=== PATIENT | female | born 1970 | race Caucasian/White ===

== ENCOUNTER 2020-12-31 10:11 | Inpatient (IN) | payer BC ==
[~2020-12-31] VITALS: Ht 160 cm; Wt 89.8 kg
[~2020-12-31 10:11] MED LIST: HYDROCHLOROTHIA25 MG PO; LISINOPRIL10 MG PO
[2020-12-31] MEDS ORDERED: SODIUM CHLORIDE 0.9% 1000ML 1,000 ML IV STA (10:33)
[2020-12-31 10:58] LABS: BASOPHILS % 0.3 % (0.0-1.0); EOSINOPHILS # (AUTO) 0.2 (0.0-0.4); EOSINOPHILS % 2.2 % (0.0-6.0); LYMPHOCYTES # (AUTO) 3.3 (1.0-3.2); LYMPHOCYTES % 43.6 % (18.0-39.1); MEAN CORPUSCULAR HEMOGLOBIN 22.2 pg (28-32); MONOCYTES # (AUTO) 0.5 (0.2-0.8); NEUTROPHILS # (AUTO) 3.5 (2.1-6.9); NEUTROPHILS % 46.1 % (38.7-80.0); PLATELET COUNT 546 x10e3/uL (140-360); RED BLOOD COUNT 3.11 x10e6/uL (3.6-5.1); RED CELL DISTRIBUTION WIDTH 15.4 % (11.7-14.4)
[2020-12-31 11:04] LABS: INR 0.91; PROTHROMBIN TIME 12.8 seconds (11.9-14.5)
[2020-12-31 11:05] LABS: PARTIAL THROMBOPLASTIN TIME 19.3 seconds (23.8-35.5)
[2020-12-31 11:06] LABS: HEMOGLOBIN 6.9 g/dL (12.0-16.0)
[2020-12-31 11:12] LABS: ALBUMIN 3.4 g/dL (3.5-5.0); ALBUMIN/GLOBULIN RATIO 0.9 (0.8-2.0); ANION GAP 14.3 mmol/L (8-16); CALCIUM 8.9 mg/dL (8.4-10.2); CREATININE, SERUM 0.7 mg/dL (0.57-1.11); POTASSIUM 3.3 mmol/L (3.5-5.1)
[2020-12-31 11:21] LABS: CREATINE KINASE MB 0.5 ng/mL (0-5.0)
[2020-12-31] MEDS ORDERED: SODIUM CHLORIDE 0.9% 1000ML 1,000 ML IV SCH (13:30)
[2020-12-31] MEDS ORDERED: ONDANSETRON HCL INJ 2MG/ML 2ML 2 MG/ML VIAL IV PRN (13:30)
[2020-12-31] MEDS ORDERED: BUSPIRONE HCL30 MG (16:58)
[2020-12-31] MEDS ORDERED: FERROUS SULFATE 325 MG TAB PO SCH (17:00)
[2020-12-31] MEDS ORDERED: DOCUSATE SODIUM 100 MG CAP PO PRN (17:00)
[2020-12-31] MEDS ORDERED: IBUPROFEN200 MG PO (17:02)
[2020-12-31] MEDS ORDERED: FLUOXETINE HCL20 MG PO (17:02)
[2020-12-31] MEDS ORDERED: CETIRIZINE HCL10 MG (17:02)
[2020-12-31] MEDS ORDERED: HYDROXYZIN10 MG/5 ML PO (17:02)
[2020-12-31] MEDS ORDERED: CYCLOBENZAPRINE10 MG PO (17:02)
[2020-12-31 17:19] VITALS: BP 130/78
[2020-12-31 17:24] VITALS: BP 130/78
[2020-12-31 17:25] VITALS: BP 130/78
[2020-12-31] MEDS: ACETAMINOPHEN 325 MG TAB PO PRN (17:36)
[2020-12-31] MEDS ORDERED: SODIUM CHLORIDE 0.9% 1000ML 1,000 ML ONE (17:38)
[2020-12-31 17:39] LABS: CHOL/HDL RATIO 4.3 (3.0-3.6)
[2020-12-31 18:00] LABS: FERRITIN 7.46 ng/mL (4.63-204.00)
[2020-12-31] MEDS ORDERED: SODIUM CHLORIDE 0.9% 250ML 250 ML IV ONE (18:00)
[2020-12-31 20:00] VITALS: BP 128/72
[2020-12-31] MEDS ORDERED: ZOLPIDEM TARTRATE 5 MG TAB PO PRN (21:00)
[2020-12-31] MEDS ORDERED: SODIUM CHLORIDE 0.9% 250ML 250 ML ONE (21:48)
[2021-01-01] VITALS (9 sets, daily range): BP systolic 123–136; BP diastolic 51–74
[2021-01-01] MEDS ORDERED: DIPHENHYDRAMINE HCL 25 MG CAP PO ONE (00:45)
[2021-01-01] MEDS ORDERED: LORAZEPAM INJ 2 MG/ML VIAL IV PRN (00:45)
[2021-01-01] MEDS ORDERED: CYCLOBENZAPRINE HCL 10 MG TAB PO PRN (07:00)
[2021-01-01 08:12] LABS: BASOPHILS % 0.3 % (0.0-1.0); EOSINOPHILS # (AUTO) 0.2 (0.0-0.4); EOSINOPHILS % 2.5 % (0.0-6.0); LYMPHOCYTES # (AUTO) 2.7 (1.0-3.2); LYMPHOCYTES % 40.4 % (18.0-39.1); MEAN CORPUSCULAR HEMOGLOBIN 23.3 pg (28-32); MEAN CORPUSCULAR HGB CONC 30.8 g/dL (31-35); MEAN CORPUSCULAR VOLUME 75.4 fL (81-99); MONOCYTES # (AUTO) 0.4 (0.2-0.8); MONOCYTES % 6.3 % (4.4-11.3); NEUTROPHILS # (AUTO) 3.3 (2.1-6.9); NEUTROPHILS % 49.8 % (38.7-80.0); PLATELET COUNT 474 x10e3/uL (140-360); RED BLOOD COUNT 3.01 x10e6/uL (3.6-5.1); RED CELL DISTRIBUTION WIDTH 15.3 % (11.7-14.4)
[2021-01-01 08:25] LABS: HEMATOCRIT 22.7 % (34.2-44.1)
[2021-01-01 08:37] LABS: ANION GAP 14.9 mmol/L (8-16); CALCIUM 8.3 mg/dL (8.4-10.2); CREATININE, SERUM 0.68 mg/dL (0.57-1.11); POTASSIUM 3.9 mmol/L (3.5-5.1)
[2021-01-01] MEDS: FLUOXETINE HCL 20 MG CAP PO SCH (09:35)
[2021-01-01] MEDS: BUSPIRONE HCL 10 MG TABLET PO SCH ×2 (09:36→14:57)
[2021-01-01] MEDS: FERROUS SULFATE 325 MG TAB PO SCH ×2 (09:36→14:57)
[2021-01-01] MEDS: FAMOTIDINE 20 MG TAB PO SCH ×2 (09:36→14:53)
[2021-01-01] MEDS ORDERED: SODIUM CHLORIDE 0.9% 250ML 250 ML ONE (09:37)
[2021-01-01] MEDS: CYANOCOBALAMIN INJ 1,000 MCG/ML VIAL IM SCH (09:38)
[2021-01-01] MEDS ORDERED: HYDROXYZINE HCL 25 MG TAB PO SCH (12:00)
[2021-01-01] MEDS ORDERED: HYDROXYZINE HCL 25 MG TAB PO PRN (15:00)
[2021-01-01] MEDS: ACETAMINOPHEN 325 MG TAB PO PRN (17:30)
[2021-01-02] MEDS: ACETAMINOPHEN 325 MG TAB PO PRN (00:10)
[2021-01-02] MEDS: FAMOTIDINE 20 MG TAB PO SCH ×2 (07:30→18:23)
[2021-01-02] MEDS: FERROUS SULFATE 325 MG TAB PO SCH ×2 (08:00→17:00)
[2021-01-02 08:21] VITALS: BP 132/66
[2021-01-02] MEDS ORDERED: DIPHENHYDRAMINE HCL INJ 50 MG/ML VIAL IV PRN ×2 (08:45→12:45)
[2021-01-02] MEDS: FLUOXETINE HCL 20 MG CAP PO SCH ×2 (09:00→14:30)
[2021-01-02] MEDS ORDERED: SODIUM CHLORIDE 0.9% 250ML 250 ML IV ONE (09:00)
[2021-01-02] MEDS: BUSPIRONE HCL 10 MG TABLET PO SCH ×2 (09:00→17:00)
[2021-01-02] MEDS: CYANOCOBALAMIN INJ 1,000 MCG/ML VIAL IM SCH (09:00)
[2021-01-02 10:15] VITALS: BP 110/61
[2021-01-02 10:46] LABS: HEMATOCRIT 27.2 % (34.2-44.1); HEMOGLOBIN 8.4 g/dL (12.0-16.0)
[2021-01-02] MEDS ORDERED: PROPOFOL IV EMULSION 10 MG/ML 20 ML VIAL ONE (12:24)
[2021-01-02] MEDS ORDERED: SEVOFLURANE INHAL SOLN 250 ML PEN BTL ONE (12:24)
[2021-01-02] MEDS ORDERED: LIDOCAINE HCL 2% LOCAL INJ 5 ML SDV VIAL INJ ONE (12:24)
[2021-01-02] MEDS ORDERED: DEXAMETHASONE SOD PHOS INJ 4 MG/ML VIAL ONE (12:24)
[2021-01-02] MEDS ORDERED: POVIDONE IODINE 0.05% 0.05 % ML PO ONE (12:24)
[2021-01-02] MEDS ORDERED: ONDANSETRON HCL INJ 2MG/ML 2ML 2 MG/ML VIAL ONE (12:24)
[2021-01-02 12:36] VITALS: BP 124/64
[2021-01-02] MEDS ORDERED: SODIUM CHLORIDE 0.9% 250ML 250 ML ONE (12:49)
[2021-01-02] MEDS ORDERED: FENTANYL CITRATE/PF 100MCG/2 ML INJ ONE (13:18)
[2021-01-02] MEDS ORDERED: MIDAZOLAM HCL 2 MG/2 ML VIAL ONE (13:18)
[2021-01-02 16:16] VITALS: BP 138/68
[2021-01-02 20:00] VITALS: BP 131/67
[2021-01-02 20:07] VITALS: BP 131/67
[2021-01-02] MEDS ORDERED: DIPHENHYDRAMINE HCL 25 MG CAP PO PRN (20:30)
[2021-01-03] MEDS: ACETAMINOPHEN 325 MG TAB PO PRN ×2 (01:18→08:14)
[2021-01-03 04:00] VITALS: BP 135/67
[2021-01-03 08:00] VITALS: BP 128/74
[2021-01-03] MEDS: FERROUS SULFATE 325 MG TAB PO SCH (08:11)
[2021-01-03] MEDS: FAMOTIDINE 20 MG TAB PO SCH (08:11)
[2021-01-03] MEDS: CYANOCOBALAMIN INJ 1,000 MCG/ML VIAL IM SCH (08:11)
[2021-01-03] MEDS: FLUOXETINE HCL 20 MG CAP PO SCH (08:12)
[2021-01-03] MEDS: BUSPIRONE HCL 10 MG TABLET PO SCH (08:12)
[2021-01-03] MEDS ORDERED: TRAMADOL HCL 50 MG TAB PO PRN (11:00)
[2021-01-03] MEDS ORDERED: FEROSUL325 MG PO (11:25)
[2021-01-03] MEDS ORDERED: VITAMIN B-121000 MC2 PO (11:26)
[2021-01-03] MEDS ORDERED: COLACE100 MG PO (11:26)
[2021-01-03] MEDS ORDERED: ZANTAC-360 (FAM20 MG PO (11:27)
[2021-01-03] MEDS ORDERED: ZOFRAN4 MG PO (11:28)
[2021-01-03] MEDS ORDERED: TYLENOL325 MG PO (11:29)
[2021-01-03 11:30] VITALS: BP 123/74
== END 2021-01-03 12:08 | disposition home or self-care (01) | DRG 745 ==
LOC: ER 10:36 → ERHOLD 13:21 → ER 14:51 → MED/SURG 15:34 → OBSVTOIN 01-01 10:03
PROVIDERS: ADMIT Internal Medicine; ATTEND Internal Medicine
PROC: 30233N1 Transfusion of Nonautologous Red Blood Cells into Peripheral Vein, Percutaneous Approach (ICD-10-PCS; principal; 2020-12-31)
PROC: 0UDB8ZX Extraction of Endometrium, Via Natural or Artificial Opening Endoscopic, Diagnostic (ICD-10-PCS; 2021-01-02)
DX: N92.0 Excessive and frequent menstruation with regular cycle (principal); D50.0 Iron deficiency anemia secondary to blood loss (chronic); E87.6 Hypokalemia; E66.9 Obesity, unspecified; Z68.35 Body mass index [BMI] 35.0-35.9, adult; D25.9 Leiomyoma of uterus, unspecified; I10 Essential (primary) hypertension; E78.5 Hyperlipidemia, unspecified; Z88.0 Allergy status to penicillin; Z88.8 Allergy status to other drugs, medicaments and biological substances; E53.8 Deficiency of other specified B group vitamins; Z20.822 Contact with and (suspected) exposure to COVID-19
CPT/HCPCS: 36415; 76830; 76856; 80048; 80053; 80061; 81025; 82550; 82553; 82607; 82728; 83036; 83540; 84466; 84484; 85014; 85018; 85025; 85610; 85730; 86850; 86900; 86920; 88304; 88305; 93005; 99284; G0378; J1100; J1200; J2001; J2060; J2250; J2405; J3010; J3410; J3420; J7030; J7050; P9016; U0002